=== PATIENT | female | born 1995 | race Caucasian/White ===

== ENCOUNTER 2022-07-19 20:30 | Emergency (ER) | payer MEDICAID ==
[~2022-07-19] VITALS: Ht 175 cm; Wt 73.0 kg
[~2022-07-19 20:30] MED LIST: CEPH500C PO; CYCL10TA25 PO; DOCU100C37 PO; FERR325T18 PO; IBUP-844 PO; NAPR-1071 PO; NAPR-915 PO; ONDA4TAB11 PO; PNV1TABL67 PO; PRD20T PO
[2022-07-19 20:42] VITALS: BP 114/68
[2022-07-19] MEDS ORDERED: CYCLOBENZAPRINE 10 MG (FLEXERIL) TAB PO STA (20:49)
--- NOTE | 2022-07-19 20:49 | ED Back Pain ---
General Chief Complaint: Back Problems Stated Complaint: BACK PAIN,LEG PAIN Source of Information: Patient Exam Limitations: No Limitations History of Present Illness Date Seen by Provider: Jul 19, 2022 Time Seen by Provider: 20:38 Initial Comments 26-year-old female that had a baby roughly 5 weeks ago vaginally with an epidural coming in due to low back pain. This pain started today, constant, worse with movement or picking up her kids, better with rest. Every once while the pain shoots down her legs. Denies any weakness, numbness, bowel or bladder issues, difficulty walking, fever, chills, nausea, vomiting, diarrhea, or any other concerns. She is otherwise denying any other acute complaints. She does have 4 kids in total including 2 kids under 2. She is otherwise denying any other trauma. She bottle feeds her baby formula. Allergies and Home Medications Allergies Coded Allergies: No Known Drug Allergies (Unverified , 07/19/22) Patient Home Medication List Home Medication List Reviewed: Yes Cyclobenzaprine HCl (Cyclobenzaprine HCl) 10 Mg Tablet, 10 MG PO TID PRN for SPASMS Prescribed by: AKILA BEYER on 07/19/222054 Ketorolac Tromethamine (Ketorolac Tromethamine) 10 Mg Tablet, 10 MG PO Q6H Prescribed by: AKILA BEYER on 07/19/222054 Lidocaine (Lidocaine 5% Patch) 5 % Adh..patch, 1 EACH TP Q12H PRN for Neuropathic pain Prescribed by: AKILA BEYER on 07/19/222054 Review of Systems Constitutional: No fever EENTM: no symptoms reported Respiratory: no symptoms reported Cardiovascular: no symptoms reported Gastrointestinal: no symptoms reported Genitourinary: no symptoms reported Musculoskeletal: see HPI Skin: no symptoms reported Psychiatric/Neurological: No Symptoms Reported Past [id number] Hx Patient Social History Substance use?: No Past Medical History Surgeries: No Physical Exam Vital Signs Vital Signs - First Documented 07/19/22 20:42 Temp 36.8 Pulse 81 Resp 16 B/P (MAP) 114/68 (83) Capillary Refill : Height, Weight, BMI Height: '" Weight: lbs. oz. kg; BMI Method: General Appearance: No Apparent Distress, WD/WN HEENT: PERRL/EOMI, Normal ENT Inspection, Pharynx Normal Neck: Full Range of Motion, Normal Inspection, Non Tender, Supple Cardiovascular: Regular Rate, Rhythm, No Edema, Normal Peripheral Pulses Respiratory: Chest Non Tender, Lungs Clear, Normal Breath Sounds, No Accessory Muscle Use, No Respiratory Distress Gastrointestinal: Normal Bowel Sounds, Non Tender, Soft; No Distended, No Guarding Back: Normal Inspection, No CVA Tenderness, No Vertebral Tenderness Extremity: Normal Capillary Refill, Normal Inspection, Normal Range of Motion, Non Tender, No Calf Tenderness, No Pedal Edema Neurologic/Psychiatric: Alert, Oriented x3, No Motor/Sensory Deficits, Normal Mood/Affect, 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 ABCs were intact and vitals were stable on presentation. Physical exam reassuring including comprehensive neuro exam is normal. She is not showing any signs of spinal epidural abscess or hematoma. I discussed with her given that the epidural was over 5 weeks ago and she has been fine since then, highly unlikely is related to that. In the absence of trauma, we will forego imaging at this time. She has been picking up multiple kids at home, and it seems much more likely to be a low back strain relation to this. We will treat her symptomatically. I believe she is otherwise stable for discharge with outpatient follow-up. She was sent home with strict return precautions. Prescriptions sent for symptom management. Departure Impression Primary Impression: Low back strain Qualified Codes: S39.012A - Strain of muscle, fascia and tendon of lower back, initial encounter Disposition: HOME, SELF-CARE Condition: Stable Departure-Patient Inst. Decision time for Depature: 21:00 Patient Instructions: Low Back Pain ED Add. 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 Given that its been roughly 5 weeks since the epidural, this is not related to that deya tely. Do some gentle stretching and movements at home which will help with the pain. You will take ketorolac for the next couple days as well as Tylenol, lidocaine patch, and muscle relaxer. Do not mix the ketorolac with ibuprofen until the prescription is done. If pain is not improved after 2 weeks then please follow back up with your regular doctor for repeat evaluation. If you develop any weakness we cannot move the leg at all, numbness where you cannot feel the leg at all, then I would want you to come back to the ER. Scripts Cyclobenzaprine HCl (Cyclobenzaprine HCl) 10 Mg Tablet 10 MG PO TID PRN for SPASMS for 5 Days, #15 TAB Prov: AKILA BEYER MD 07/19/22 Lidocaine (Lidocaine 5% Patch) 5 % Adh..patch 1 EACH TP Q12H PRN for Neuropathic pain MDD 2 for 7 Days, #14 PATCH 2 patches max for 12 hours, then 12 hours patch-free period. Prov: AKIAL BEYER MD 07/19/22 Ketorolac Tromethamine (Ketorolac Tromethamine) 10 Mg Tablet 10 MG PO Q6H for 3 Days, #12 TAB Prov: AKILA BEYER MD 07/19/22 Work/School Note: Family Work Note Patient Received Medical Care In the Emergency Department On: Jul 19, 2022 Patient Will Be Able to Return to Work/School On: Jul 21, 2022 AKILA BEYER MD Jul 19, 2022 20:49
[2022-07-19] MEDS ORDERED: CYCL10TA25 PO (20:55)
[2022-07-19] MEDS ORDERED: KETO10TA PO (20:55)
[2022-07-19] MEDS ORDERED: LIDO700A45 TP (20:55)
[2022-07-19] MEDS ORDERED: KETOROLAC 15 MG/ML VIAL IM ONE (21:00)
== END 2022-07-19 21:12 | disposition home or self-care (01) ==
LOC: ER FS 20:32
DX: S39.012A Strain of muscle, fascia and tendon of lower back, initial encounter (principal); Z28.310 Unvaccinated for COVID-19; X58.XXXA Exposure to other specified factors, initial encounter
CPT/HCPCS: 99284